=== PATIENT | female | born 1970 | race Two or more races ===

== ENCOUNTER 2024-06-01 14:00 | Emergency (ER) | payer OTHER ==
[~2024-06-01] VITALS: Ht 160 cm; Wt 77.1 kg
[2024-06-01] MEDS ORDERED: PAXIL20 MG (15:06)
[2024-06-01] MEDS ORDERED: CETIRIZINE HCL 5 MG/5 ML ML PO ONE (17:30)
[2024-06-01] MEDS ORDERED: BUTALB/ACETAMINOPHEN/CAFFEINE 1 TAB TABLET PO ONE (17:30)
[2024-06-01] MEDS ORDERED: GUAIFENESIN/DEXTROMETHORPHAN 10ML BLIST.PACK PO ONE (17:30)
[2024-06-01] MEDS ORDERED: QC TUSSIN DM L118 ML PO (17:53)
[2024-06-01] MEDS ORDERED: AYR SALINE50 ML NASAL (17:53)
[2024-06-01] MEDS ORDERED: FLONASE16 GM NASAL (17:53)
[2024-06-01] MEDS ORDERED: ZYRTEC10 MG PO (17:53)
[2024-06-01] MEDS ORDERED: AMOX-CLAV 875-1 EAC1 PO (17:53)
== END 2024-06-01 18:28 | disposition home or self-care (01) ==
LOC: ER 14:02
DX: J32.9 Chronic sinusitis, unspecified (principal); G43.909 Migraine, unspecified, not intractable, without status migrainosus